=== PATIENT | female | born 1990 | race Caucasian/White ===

== ENCOUNTER 2020-10-25 15:58 | Emergency (ER) | payer OTHER ==
[~2020-10-25] VITALS: Ht 157.5 cm; Wt 104.3 kg
[2020-10-25] MEDS ORDERED: MIRTAZAPINE7.5 MG PO (16:09)
[2020-10-25] MEDS ORDERED: LEVOTHYROXINE88 MC1 PO (16:09)
[2020-10-25] MEDS ORDERED: LIPITOR40 MG PO (16:11)
[2020-10-25] MEDS ORDERED: TOPAMAX100 MG PO (16:11)
--- NOTE | 2020-10-25 17:08 | EKG ---
[place] [address] ELECTROCARDIOGRAM REPORT Name: JACKIE PFEIFFER Room: [facility]#: [id number] Admission: 10/25/20 Attend Phys: Discharge: Date of : 89 Date of Service: 10/25/20 1649 Report #: [id number] THIS REPORT FOR: //name// [facility] ED Test Date: 2020-10-25 Test Time: 16:49:41 Pat Name: JACKIE PFEIFFER Department: Room: Gender: Sal[employer] Professional: SUBHA : 1990 Requested By: Mina Bradley Order Number: [id number] MD: Raúl Keyes Measurements Intervals [place] Rate: 98 P: 31 MA: 132 QRS: 42 QRSD: 70 T: 33 QT: 412 QTc: 527 Interpretive Statements Sinus rhythm Probable left atrial enlargement Low voltage, precordial leads RSR' in V1 or V2, probably normal variant Borderline abnrm T, anterolateral leads Prolonged QT interval Baseline wander in lead(s) V3,V4,V5,V6 No previous ECG available for comparison Electronically Signed On 10-25-2020 17:08:47 CDT by Raúl Keyes [email or web address] <ELECTRONICALLY SIGNED> By: Raúl Keyes MD, [facility] 10/25/20 1708 1649 1649 Raúl Keyes MD, [facility] /EPI
[2020-10-25 17:19] LABS: ABSOLUTE BASOPHILS 0.1 thou/uL (0.0-0.2); ABSOLUTE EOSINOPHILS 0.4 thou/uL (0.0-0.7); ABSOLUTE LYMPHOCYTES 4.5 thou/uL (0.8-5.3); ABSOLUTE MONOCYTES 0.9 thou/uL (0.0-1.2); ABSOLUTE NEUTROPHILS 7.7 thou/uL (1.6-8.1); BASOPHILS 0.6 %; EOSINOPHILS 3.3 %; HEMATOCRIT 43.5 % (37.0-47.0); HEMOGLOBIN 14.5 gm/dL (12.0-15.0); MCH 30.1 pg (26.0-34.0); MCHC 33.3 g/dL (28.0-37.0); MCV 90.5 fL (80.0-100.0); MONOCYTES 6.5 %; MPV 8.2 fl. (7.2-11.1); NUCLEATED RBCS 0 /100WBC; PLATELET COUNT* 292 thou/uL (150-400); POLYS 56.6 %; RDW-CV 13.5 % (10.5-14.5); WBC 13.6 thou/uL (4.0-11.0)
[2020-10-25 17:25] LABS: CREATININE 1.1 mg/dL (0.6-1.3); POTASSIUM 3.5 mmol/L (3.5-5.1)
[2020-10-25 17:30] LABS: ALBUMIN 4.1 g/dL (3.4-5.0); TOTAL BILIRUBIN 0.5 mg/dL (<0.1-1.0); TOTAL PROTEIN 7.3 g/dL (6.4-8.2)
[2020-10-25 19:14] VITALS: BP 127/80
== END 2020-10-25 19:15 | disposition left against medical advice (07) ==
LOC: EDSEX 15:58 → M.ERS 15:58
PROVIDERS: Emergency Medicine Emergency Medical Services
DX: S63.592A Other specified sprain of left wrist, initial encounter (principal); R56.9 Unspecified convulsions; W18.39XA Other fall on same level, initial encounter; Y93.89 Activity, other specified; Y92.89 Other specified places as the place of occurrence of the external cause; Y99.8 Other external cause status